=== PATIENT | female | born 1935 | race Caucasian/White ===

== ENCOUNTER 2024-08-12 16:45 | Inpatient (IN) | payer MEDICARE, MEDICAID ==
[~2024-08-12] VITALS: Ht 157.5 cm; Wt 48.6 kg
[2024-08-12 19:42] LABS: HEMATOCRIT. 38.4 % (36.0-48.0); HEMOGLOBIN. 13.1 g/dL (12.0-16.0); MEAN CORPUSCULAR HEMOGLOBIN 30.5 pg (28.0-32.0); MEAN CORPUSCULAR HGB CONC 34.1 g/dL (31.0-37.0); MEAN CORPUSCULAR VOLUME 89.2 fL (81.0-99.0); PLATELET 283 x1000/uL (130-400); RED BLOOD CELL COUNT 4.31 mill/uL (4.2-5.4); RED CELL DISTRIBUTION WIDTH 13.6 % (11.6-14.6); WHITE BLOOD COUNT 5.1 x1000/uL (4.5-11.0)
[2024-08-12 19:44] LABS: DIFFERENTIAL COMMENT 1
[2024-08-12 19:46] LABS: CHLORIDE 103 mEq/L (98-107); POTASSIUM 3.2 mEq/L (3.5-5.1); SODIUM 141 mEq/L (136-145)
[2024-08-12 19:47] LABS: CALCIUM 9.8 mg/dL (8.7-10.4); CARBON DIOXIDE 29 mEq/L (21-32)
[2024-08-12 19:52] LABS: GLUCOSE 91 mg/dL (70-105); UREA NITROGEN BLOOD 18 mg/dL (9-23)
[2024-08-12 19:53] LABS: AMMONIA < 17 uMol/L (<32)
[2024-08-12 19:54] LABS: ACETAMINOPHEN < 2 ug/mL (10-30)
[2024-08-12 20:28] LABS: PLATELET ESTIMATE NORMAL
[2024-08-12 20:42] LABS: ETHANOL BLOOD < 10 mg/dL (<10)
[2024-08-13] MEDS: POTASSIUM CHLORIDE 20MEQ/PACKET PO ONE (01:19)
[2024-08-13 06:23] LABS: CLARITY URINE CLEAR (CLEAR); COLOR URINE YELLOW (YELLOW); GLUCOSE URINE NEGATIVE (NEGATIVE); KETONES URINE NEGATIVE (NEGATIVE); LEUKOCYTE ESTERASE URINE NEGATIVE (NEGATIVE); NITRITE URINE NEGATIVE (NEGATIVE); OCCULT BLOOD URINE 2+ (NEGATIVE); PROTEIN URINE 1+ (NEGATIVE); SPECIFIC GRAVITY URINE 1.013 (1.005-1.030)
[2024-08-13 06:30] LABS: *AMPHETAMINES SCREEN URINE NEGATIVE (NEGATIVE); *BARBITURATES SCREEN URINE NEGATIVE (NEGATIVE); *BENZODIAZEPINES SCREEN URINE NEGATIVE (NEGATIVE); *COCAINE SCREEN URINE NEGATIVE (NEGATIVE); METHADONE URINE SCREEN NEGATIVE (NEGATIVE)
[2024-08-13 06:31] LABS: CANNABINOID URINE SCREEN NEGATIVE (NEGATIVE); ECSTASY MDMA SCREEN URINE NEGATIVE (NEGATIVE); OPIATES URINE SCREEN NEGATIVE (NEGATIVE); PHENCYCLIDINE URINE SCREEN NEGATIVE (NEGATIVE)
[2024-08-13 06:53] LABS: TROPONIN I HIGH SENSITIVITY 21 ng/L (3.0-34)
[2024-08-13 06:55] LABS: ALANINE AMINOTRANSFERASE 8 IU/L (10-49); ALBUMIN 4.1 g/dL (3.2-4.8); ASPARTATE AMINOTRANSFERASE 18 IU/L (<34); BILIRUBIN DIRECT 0.1 mg/dL (<=3.0); BILIRUBIN TOTAL 0.6 mg/dL (0.1-1.0); PROTEIN TOTAL 7.9 g/dL (6.0-8.3)
[2024-08-13 06:58] LABS: RBC URINE 15-25 /hpf (0-2); SQUAMOUS EPITHELIAL CELL URINE NONE SEEN /lpf (RARE/1+); WBC URINE 0-2 /hpf (0-2)
[2024-08-13 06:59] LABS: BACTERIA URINE NONE SEEN
[2024-08-13] MEDS: ENALAPRIL 1.25MG/ML VIAL 1ML IV NR (07:14)
[2024-08-13] MEDS ORDERED: ENALAPRIL 2.5MG/2ML VIAL 2ML IV ONE (07:15)
[2024-08-13] MEDS ORDERED: IPRATROPIUM/ALBUTEROL 0.5-3(2.5)MG/3ML NEB HHN PRN (09:00)
[2024-08-13] MEDS ORDERED: GUAIFENESIN 200MG/10ML SUGAR FREE UDC PO PRN (09:00)
[2024-08-13] MEDS ORDERED: ONDANSETRON HCL 4MG/2ML INJ IV PRN (09:00)
[2024-08-13] MEDS ORDERED: ACETAMINOPHEN 325MG TABLET PO PRN ×2 (09:00)
[2024-08-13] MEDS ORDERED: MAGNESIUM/ALUMINUM HYDROXIDE/SIMETHICONE 30ML UDC PO PRN (09:00)
[2024-08-13] MEDS ORDERED: DOCUSATE SODIUM 100MG CAPSULE PO PRN (09:00)
[2024-08-13] MEDS: LABETALOL 5MG/ML 4ML INJ IV NR (09:38)
[2024-08-13 10:30] VITALS: BP 173/70; PULSE 62; RESP 14; TEMP 36
[2024-08-13 16:00] VITALS: BP 192/79; PULSE 66; RESP 18; TEMP 36.3; O2SAT 99
[2024-08-13 18:15] LABS: HEPATITIS B SURFACE ANTIGEN NEGATIVE (Negative)
[2024-08-13] MEDS: CLONIDINE 0.1MG TABLET PO PRN (18:33)
[2024-08-13 18:36] LABS: HEPATITIS C AB NON REACTIVE (Neg) (Negative)
[2024-08-13 20:00] VITALS: BP 177/71; PULSE 63; RESP 20; TEMP 36.5; O2SAT 100
[2024-08-13] MEDS: HYDRALAZINE 20MG/ML VIAL IV PRN (21:07)
[2024-08-13 21:40] VITALS: BP 118/65
[2024-08-13 23:58] VITALS: BP 140/82; PULSE 65; RESP 18; TEMP 36.4; O2SAT 99
[2024-08-14 04:00] VITALS: BP 144/65; PULSE 66; RESP 20; TEMP 36.8; O2SAT 99
[2024-08-14 06:02] LABS: CARBON DIOXIDE 26 mEq/L (21-32); CHLORIDE 106 mEq/L (98-107); POTASSIUM 3.6 mEq/L (3.5-5.1); SODIUM 140 mEq/L (136-145)
[2024-08-14 06:03] LABS: CALCIUM 8.6 mg/dL (8.7-10.4)
[2024-08-14 06:07] LABS: GLUCOSE 86 mg/dL (70-105)
[2024-08-14 06:08] LABS: TRIGLYCERIDE 42 mg/dL (0-150); UREA NITROGEN BLOOD 25 mg/dL (9-23)
[2024-08-14 06:09] LABS: CHOLESTEROL 157 mg/dL (<200); LDL CHOLESTEROL 87 mg/dL (5-100)
[2024-08-14 06:10] LABS: HDL CHOLESTEROL 55 mg/dL (>65); PHOSPHORUS 3.8 mg/dL (2.5-4.9)
[2024-08-14 06:12] LABS: T4 FREE 1.04 ng/dL (0.89-1.76); THYROID STIMULATING HORMONE 4.56 uIU/mL (0.55-4.78)
[2024-08-14 08:00] VITALS: BP 168/89; PULSE 61; RESP 18; TEMP 37.1; O2SAT 97
[2024-08-14 08:17] LABS: HEMATOCRIT 34.6 % (36.0-48.0); HEMOGLOBIN 11.5 g/dL (12.0-16.0); MEAN CORPUSCULAR HEMOGLOBIN 30.1 pg (28.0-32.0); MEAN CORPUSCULAR HGB CONC 33.3 g/dL (31.0-37.0); MEAN CORPUSCULAR VOLUME 90.4 fL (81.0-99.0); PLATELET 258 x1000/uL (130-400); RED BLOOD CELL COUNT 3.83 mill/uL (4.2-5.4); RED CELL DISTRIBUTION WIDTH 13.7 % (11.6-14.6); WHITE BLOOD COUNT 5.2 x1000/uL (4.5-11.0)
[2024-08-14] MEDS: AMLODIPINE 10MG TABLET PO SCH (08:40)
[2024-08-14] MEDS: QUETIAPINE FUMARATE 25MG TABLET PO SCH (08:40)
[2024-08-14 10:02] VITALS: BP 155/83; PULSE 58; RESP 20; O2SAT 97
[2024-08-14 12:00] VITALS: BP 90/58; PULSE 61; RESP 20; TEMP 36.7; O2SAT 98
[2024-08-14 16:00] VITALS: BP 98/35; PULSE 80; RESP 17; TEMP 36.8; O2SAT 100
[2024-08-14 20:00] VITALS: BP 162/66; PULSE 77; RESP 20; TEMP 36.2; O2SAT 97
[2024-08-15] VITALS (7 sets, daily range): BP systolic 136–145; BP diastolic 48–65; PULSE 78–94; RESP 20; TEMP 36.3–37.2; O2SAT 96–99
[2024-08-15 06:22] LABS: CALCIUM 8.9 mg/dL (8.7-10.4); CARBON DIOXIDE 27 mEq/L (21-32); CHLORIDE 104 mEq/L (98-107); POTASSIUM 4.1 mEq/L (3.5-5.1); SODIUM 139 mEq/L (136-145)
[2024-08-15 06:28] LABS: CREATININE 1.2 mg/dL (0.6-1.0); GLUCOSE 84 mg/dL (70-105); UREA NITROGEN BLOOD 30 mg/dL (9-23)
[2024-08-15 06:30] LABS: PHOSPHORUS 3.8 mg/dL (2.5-4.9)
[2024-08-15 06:52] LABS: HEMATOCRIT. 35.6 % (36.0-48.0); MEAN CORPUSCULAR HEMOGLOBIN 30.2 pg (28.0-32.0); MEAN CORPUSCULAR HGB CONC 33.7 g/dL (31.0-37.0); MEAN CORPUSCULAR VOLUME 89.6 fL (81.0-99.0); MEAN PLATELET VOLUME 9.4 fl (7.4-10.4); PLATELET 302 x1000/uL (130-400); RED BLOOD CELL COUNT 3.97 mill/uL (4.2-5.4); RED CELL DISTRIBUTION WIDTH 13.8 % (11.6-14.6); WHITE BLOOD COUNT 6.1 x1000/uL (4.5-11.0)
[2024-08-15 08:44] LABS: DIFFERENTIAL COMMENT 1
[2024-08-15 19:56] LABS: PLATELET ESTIMATE NORMAL
[2024-08-15] MEDS: QUETIAPINE FUMARATE 25MG TABLET PO SCH (21:00)
[2024-08-16] VITALS: BP 145/61; PULSE 87; RESP 20; TEMP 37.2; O2SAT 98
[2024-08-16 04:00] VITALS: BP 143/58; PULSE 82; RESP 20; TEMP 36.8; O2SAT 98
[2024-08-16 07:21] LABS: POTASSIUM 4.5 mEq/L (3.5-5.1)
[2024-08-16 07:22] LABS: CALCIUM 8.9 mg/dL (8.7-10.4)
[2024-08-16 07:26] LABS: CREATININE 1.1 mg/dL (0.6-1.0)
[2024-08-16 08:00] VITALS: BP 172/80; PULSE 72; RESP 20; TEMP 36.1; O2SAT 97
[2024-08-16 08:18] LABS: HEMATOCRIT. 32.9 % (36.0-48.0); HEMOGLOBIN. 11.2 g/dL (12.0-16.0); MEAN CORPUSCULAR HEMOGLOBIN 30.6 pg (28.0-32.0); MEAN CORPUSCULAR HGB CONC 34.1 g/dL (31.0-37.0); MEAN CORPUSCULAR VOLUME 89.8 fL (81.0-99.0); MEAN PLATELET VOLUME 9.4 fl (7.4-10.4); PLATELET 269 x1000/uL (130-400); RED BLOOD CELL COUNT 3.66 mill/uL (4.2-5.4); RED CELL DISTRIBUTION WIDTH 13.9 % (11.6-14.6); WHITE BLOOD COUNT 6.1 x1000/uL (4.5-11.0)
[2024-08-16 09:20] LABS: DIFFERENTIAL COMMENT 1
[2024-08-16 12:00] VITALS: BP 148/65; PULSE 68; RESP 20; TEMP 37.1; O2SAT 97
[2024-08-16 12:48] LABS: PLATELET ESTIMATE NORMAL
[2024-08-16] MEDS: SODIUM CHLORIDE 0.9% 500 ML IV ONE (14:11)
[2024-08-16 16:19] VITALS: BP 115/70; PULSE 81; RESP 18; TEMP 36.6; O2SAT 96
[2024-08-16] MEDS ORDERED: AMLO10TA80 PO (16:44)
[2024-08-16] MEDS ORDERED: QUET25TA PO (16:44)
[2024-08-16 20:00] VITALS: BP 130/62; PULSE 80; RESP 18; TEMP 36.7; O2SAT 97
[2024-08-17] VITALS (7 sets, daily range): BP systolic 135–157; BP diastolic 51–75; PULSE 64–81; RESP 18–20; TEMP 36.4–36.9; O2SAT 97–99
[2024-08-18 00:18] VITALS: BP 138/68; PULSE 86; RESP 18; TEMP 36.8; O2SAT 98
[2024-08-18 04:00] VITALS: BP 169/72; PULSE 69; RESP 20; TEMP 36.7; O2SAT 97
[2024-08-18 08:00] VITALS: BP 145/76; PULSE 77; RESP 20; TEMP 36.1; O2SAT 97
[2024-08-18 12:00] VITALS: BP 152/67; PULSE 70; RESP 20; TEMP 36.2; O2SAT 98
[2024-08-18 16:00] VITALS: BP 147/66; PULSE 62; RESP 18; TEMP 36.3; O2SAT 99
[2024-08-18 20:00] VITALS: BP 159/56; PULSE 71; RESP 20; TEMP 36.6; O2SAT 98
[2024-08-19] VITALS: BP 159/73; PULSE 71; RESP 19; TEMP 36.8; O2SAT 99
[2024-08-19 03:29] VITALS: BP 155/59; PULSE 55; RESP 19; TEMP 36.5; O2SAT 99
[2024-08-19 08:00] VITALS: BP 165/70; PULSE 59; RESP 20; TEMP 37.2; O2SAT 98
[2024-08-19 12:24] VITALS: BP 144/67; PULSE 69; RESP 20; TEMP 35.9; O2SAT 97
[2024-08-19] MEDS: HALOPERIDOL LACTATE 5MG/ML VIAL IM NR (13:54)
[2024-08-19 14:12] VITALS: BP 156/75; PULSE 75; TEMP 97.2; O2SAT 100
== END 2024-08-19 14:45 | DRG 304 ==
LOC: ER 16:45 → EDBEDREQ 08-13 06:05 → 7WST 08-13 06:31 → EDBEDREQTM 08-13 06:54 → EDBEDREQ 08-13 06:54
PROVIDERS: ADMIT Hospitalist; ATTEND Hospitalist
PROC: GZ56ZZZ Individual Psychotherapy, Supportive (ICD-10-PCS; principal; 2024-08-14)
DX: I16.0 Hypertensive urgency (principal); G92.8 Other toxic encephalopathy; Z59.00 Homelessness unspecified; I10 Essential (primary) hypertension; E87.6 Hypokalemia; Z20.822 Contact with and (suspected) exposure to COVID-19; F20.9 Schizophrenia, unspecified; F32.A Depression, unspecified; F41.9 Anxiety disorder, unspecified; Z79.899 Other long term (current) drug therapy
CPT/HCPCS: 36415; 71045; 80048; 80061; 80076; 80305; 80307; 80320; 80329; 81003; 82140; 83735; 84100; 84439; 84443; 84484; 85025; 85027; 86705; 87340; 87426; 93005; 97161; 97166; 99285; J0360; J1630; J3490; G0480